=== PATIENT | male | born 1935 | race Caucasian/White ===

== ENCOUNTER → 2017-01-22 | Outpatient (CLI) | payer MEDICARE, BC ==
[~2017-01-22] MED LIST: ARBINOXA4 MG PO; FISH OIL 1,0001 CAP PO; FLOMAX0.4 M1 PO; METOPROLOL TAR25 MG PO; MULTIVITAMIN1 UDCAP PO; NASACORT AQ16.5 GM; NEXIUM PO; QUINAPRIL-HCTZ1 TA1 PO; SYMBICORT INH; TRICOR145 MG PO; VESICARE PO; ZOCOR PO
--- NOTE | ~2017-01-22 | NM8 ---
[facility] A Service of [facility] & [facility] RADIOLOGY TEXT RESULTS PATIENT: MATEO JOSEPH LOCATION: [facility] : 37 UNIT #: [id number] AGE: [address]: Beny Messer MD SEX: M ORDER DR: [id number] [facility] [address] [place], [place] [address] [id number] O MR#: [id number] Acc #: [id number] NAME: MATEO JOSEPH. : 1935 SEX: M STUDY DATE/TIME: 01/22/2017 10:50 UNIT: [facility] ROOM: STUDY DESCRIPTION: NM Bone or Joint Whole Body Attending Physician: Beny Messer M.D. Ordering Physician: Beny Messer M.D. Primary Care Physician: Cortez Hdz M.D. MEDICAL IMAGING REPORT This report is preliminary unless electronic signature is present EXAM Bone scan 01/22 INDICATIONS Prostate cancer diagnosed 01/19/2017. Observation malignant neoplasm. Prior history of injury to the left hip. Prior history of facial fractures and right foot fracture. FINDINGS Routine delayed whole body images were obtained after the IV administration of 28.4 mCi of technetium 99m - MDP. COMPARISON CT abdomen and pelvis from 01/22/2017. FINDINGS Study demonstrates degenerative appearing uptake at the right first MTP joint. There is also degenerative appearing uptake in the medial compartment of the left knee and the patellofemoral compartment right knee. There is degenerative uptake in the AC joints and sternoclavicular joints. The CT scan shows degenerative disease and scoliosis in the lumbar spine. I believe uptake on the current exam in the lumbar spine and lower thoracic spine is related to degenerative disease rather than metastatic disease. There is a focal small area of uptake in the left shoulder near the glenohumeral joint. There is also mild multifocal uptake in the costochondral junctions bilaterally, predominately at what is probably the left sixth or seventh rib and the right seventh or eighth rib. These could be further evaluated with CT if indicated. Uptake in the lower cervical spine is also probably degenerative as well. Consider cervical radiographs. 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 [facility] A Service of [facility] & [facility] RADIOLOGY TEXT RESULTS PATIENT: MATEO JOSEPH LOCATION: [facility] : 37 UNIT #: [id number] AGE: [address]: Beny Messer MD SEX: M ORDER DR: including within the spine. There are areas of uptake in the anterior costochondral junctions bilaterally as well as in the lower cervical spine and in the left shoulder. This is also probably degenerative. Consider followup with CT of the chest as I have no basis for comparison. Cervical spine radiographs may be beneficial as well. The exam otherwise shows physiologic tracer distribution. Dictated by... Harpreet Blair Jr., M.D. THIS IS AN ELECTRONICALLY VERIFIED REPORT Harpreet Blair Jr., M.D. at 01/27/2017 9:19 AM SRAVANTHI/lj TD: 01/26/2017 16:36 JOB #: [id number] MEDICAL IMAGING REPORT Page 1 of 1 COPY
--- NOTE | ~2017-01-22 | CT3 ---
[facility] A Service of [facility] RADIOLOGY TEXT RESULTS PATIENT: MATEO JOSEPH LOCATION: [facility] : 37 UNIT #: [id number] AGE: [address]: Beny Messer MD SEX: M ORDER DR: [id number] [place] [id number]. [place], [place] [address] [id number] O MR#: [id number] Acc #: [id number] NAME: MATEO JOSEPH. : 1935 SEX: M STUDY DATE/TIME: 01/22/2017 8:34 UNIT: [facility] ROOM: STUDY DESCRIPTION: CT Abd and Pelv WWo Cont Attending Physician: Beny Messer M.D. Ordering Physician: Beny Messer M.D. Primary Care Physician: Cortez Hdz M.D. MEDICAL IMAGING REPORT This report is preliminary unless electronic signature is present EXAM CT abdomen and pelvis without and with contrast INDICATIONS Staging prostate cancer. Observation for metastatic disease. PROCEDURE Unenhanced CT of the abdomen and pelvis. Postcontrast CT abdomen and pelvis. 100 mL of Isovue-370. This CT exam was performed with one or more of the following radiation dose reduction techniques: automatic exposure control, adjustment of mA and/or kV according to patient size, and iterative reconstruction. COMPARISON None FINDINGS Abdomen without contrast: Included lung bases are clear. Very mild hepatic steatosis. No radiodense gallstones. No radiodense urinary system calculus. Pelvis without contrast: No radiodense bladder calculus. There are a few calcifications in the prostate gland. Abdomen with contrast: The liver, spleen, kidneys, adrenal glands, pancreas, gallbladder unremarkable. Uncomplicated sigmoid diverticulum. Moderate colonic stool burden. Appendix is normal. No pathologically enlarged abdominal nodes. Pelvis with contrast. No pelvic mass or adenopathy. The prostate measures 5.4 cm. No aggressive appearing bone lesion. [facility] A Service of [facility] RADIOLOGY TEXT RESULTS PATIENT: MATEO JOSEPH LOCATION: [facility] : 39 UNIT #: [id number] AGE: [address]: Beny Messer MD SEX: M ORDER DR: IMPRESSION 1. Prostatomegaly. 2. No convincing evidence for metastatic disease in the abdomen or pelvis. 3. Low-attenuation liver compared with the spleen, suggesting hepatic steatosis. 4. The patient underwent a whole body bone scan on the same day as this study. Refer to that dictation for the possibility of any CT occult bone lesion. Dictated by... J Carlos Dorsey M.D. THIS IS AN ELECTRONICALLY VERIFIED REPORT J Carlos Dorsey M.D. at 01/23/2017 4:51 PM EED/to TD: 01/22/2017 11:30 JOB #: [id number] MEDICAL IMAGING REPORT Page 1 of 1 COPY
[2017-01-22 13:21] LABS: POC - CREATININE 1.3 mg/dL (0.64-1.27)
== END | disposition home or self-care (01) ==
LOC: CCAT 07:28
PROVIDERS: Urology
DX: C61 Malignant neoplasm of prostate (principal); R35.0 Frequency of micturition; R39.15 Urgency of urination; N40.0 Benign prostatic hyperplasia without lower urinary tract symptoms
CPT/HCPCS: 74178; 78306; 82565; A9503; Q9967